=== PATIENT | male | born 2000 | race Caucasian/White ===

== ENCOUNTER → 2022-01-12 | Outpatient (CLI) | payer OTHER | LOC: COL.PUL 09:39 | DX: R06.02 Shortness of breath (principal) | CPT/HCPCS: J7674 ==

== ENCOUNTER 2022-12-12 11:25 | Day surgery (SDC) | payer OTHER ==
[~2022-12-12] VITALS: Ht 167.6 cm; Wt 60.0 kg
[2022-12-12] VITALS (15 sets, daily range): BP systolic 107–134; BP diastolic 56–83; PULSE 52–85; TEMP 97.6–99.4
[2022-12-12 12:20] LABS: BASO % 0.5 % (0.0-2.0); EOS # 0.1 K/mm3 (0.0-0.7); EOS % 0.8 % (0.0-4.0); GRAN # 5.3 K/mm3 (1.4-6.5); GRAN % 68.9 % (42.2-75.2); HEMATOCRIT 42.4 % (42.0-52.0); HEMOGLOBIN 15.3 g/dl (13.5-18.0); LYMPH # 1.9 K/mm3 (1.2-3.4); LYMPH % 24.3 % (20.0-51.0); MEAN CELL VOLUME 84 fl (80.0-100.0); MEAN CORPUSCULAR HEMOGLOBIN 30 pg (27-31); MEAN CORPUSCULAR HGB CONC 36 g/dl (33.0-37.0); MEAN PLATELET VOLUME 10.6 fl (7.4-10.4); MONO # 0.4 K/mm3 (0.1-0.6); MONO % 5.4 % (1.7-9.3); PLATELET COUNT 233 K/mm3 (130-400); RED BLOOD COUNT 5.05 M/mm3 (4.20-5.60); REDCELL DISTRIBUTION WIDTH-CV 11.8 % (11.5-14.5)
[2022-12-12 12:30] LABS: INR 1.2 (0.8-3.0); PROTHROMBIN TIME 13.5 SECONDS (9.7-12.8)
[2022-12-12 12:44] LABS: CALCIUM 9.5 mg/dL (8.4-10.2); CREATININE, serum 0.89 mg/dL (0.72-1.25); POTASSIUM 4.1 mmol/L (3.5-4.5)
--- NOTE | 2022-12-12 13:48 | NUR ---
SEE MERGE FOR ALL MEDICATIONS GIVEN, VITALS AND INTERVENTIONS.
--- NOTE | 2022-12-12 16:12 | NUR ---
Rec'd pt to room 317 s/p pacemaker placement. Pt A/O x4. Pacemaker site with slight drainage- which is outlined with a pen. Ice to pacemaker site and sling to LUE in place. VSS- see flowsheet.
--- NOTE | 2022-12-12 18:50 | NUR ---
VSS- See flowsheet. Ice to pacemaker site refreshed. Sling still in place. Pt tolerated chic dieudonne a for dinner without c/o nausea. Additional small amount of serosangunioues drainage noted to dressing- outlined with marker. Rates pain 6/10.
--- NOTE | 2022-12-12 20:30 | NUR ---
Initial shift assessment done- VSS., pt states pacemaker site pain 03/02--will give tylenol when time, ice to incision, does have old drainage marked on dressing ,, no new drainage noted, tele on- paced,, Sling on left arm, has not voided yet post-op,
[2022-12-13 03:23] VITALS: BP 108/53; PULSE 57; TEMP 97.6
--- NOTE | 2022-12-13 06:12 | NUR ---
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 VSS, Tele on--
[2022-12-13 07:35] VITALS: BP 110/59; PULSE 68; TEMP 97.9
--- NOTE | 2022-12-13 09:00 | NUR ---
MARZENA met with the patient to discuss discharge plan. The patient is active and lives in the [facility] on [address]. He reports independence with ADLs and does not have any DME. The patient's primary care provider is Lieutenant Franz at [facility] on [address] and he receives his medications from [facility]. The patient's reports that his is not , does not have any children. His mother, Amparo Riggins (ph#[phone]), is his next of kin. She lives in [place]. The patient plans to return home upon discharge. No additional needs at this time. *Discharge plan: home*
--- NOTE | 2022-12-13 09:13 | NUR ---
Assessment complete. Reports pacemaker site pain 05/02. Tylenol administered. No new drainage to pacemaker dressing since yesterday evening. Reports using the urinal overnight. Encouraged to call staff for assistance to BR the first time. Verbalizes understanding. Ice placed to pacer site. Sling to LUE on.
--- NOTE | 2022-12-13 09:30 | NUR ---
Initial visit; Patient thanked Outsole Splicer for looking in on him and wishing him well. Patient is a very nice young man who smiles a lot and exudes Taoism Love. Outsole Splicer offered God's blessings for good health. He thanked Outsole Splicer.
[2022-12-13] MEDS ORDERED: ULTRAM 50MG TAB50 MG PO (10:01)
[2022-12-13 11:10] VITALS: BP 128/79; PULSE 65; TEMP 97.8
--- NOTE | 2022-12-13 12:40 | NUR ---
Discharge instructions reviewed with patient - verbalizes understanding. INT to [facility]FA d/c'd. Tele d/c'd. Pt escorted via w/c to private vehicle and discharged home with friend.
== END 2022-12-13 12:40 | disposition home or self-care (01) ==
LOC: COL.CAR 11:25 → MEDICAL 16:32 → COL.CAR 12-13 12:40
PROVIDERS: Internal Medicine Interventional Cardiology
DX: I45.5 Other specified heart block (principal); R00.1 Bradycardia, unspecified; Z45.09 Encounter for adjustment and management of other cardiac device
CPT/HCPCS: OP; C1769; C1785; C1894; C1898; J0690; J2250; J3010